=== PATIENT | male | born 1970 | race Two or more races ===

== ENCOUNTER 2016-09-26 09:43 | Inpatient (IN) | payer MEDICAID ==
[~2016-09-26] VITALS: Ht 165.1 cm; Wt 71.8 kg
[2016-09-26] VITALS (7 sets, daily range): BP systolic 104–143; BP diastolic 63–77
[~2016-09-26 09:43] MED LIST: INSUINJ37 SUBCUT; LACT10SO3 PO; NOR10T PO; [UNRECOGNIZED DRUG - CODE] PO
[2016-09-26 10:23] LABS: Basophils # (auto) 0 uL; Basophils % (auto) 0.7 % (0.0-2.0); CONDITION Y; DEFINITIVE SEE PRINTOUT; Eosinophils # (auto) 0.2 uL; Eosinophils % (auto) 2.6 % (0.0-7.0); Hematocrit 21.2 % (41.0-53.0); Hemoglobin 7.1 g/dL (13.5-17.5); Lymphocytes # (auto) 0.7 uL; Lymphocytes % (auto) 9.6 % (10.0-50.0); Mean Corpuscular Hgb Conc. 33.6 g/dL (32.0-36.0); Mean Corpuscular Volume 83.4 fL (80.0-100.0); Mean Platelet Volume 8.9 fL (7.4-10.4); Monocytes # (auto) 0.7 uL; Monocytes % (auto) 10.2 % (0.0-12.0); Neutrophils # (auto) 5.3 uL; Neutrophils % (auto) 76.9 % (37.0-80.0); Red Cell Distribution Width 21.3 % (11.6-16.0); White Blood Cell 6.9 10^3/uL (4.4-10.8)
[2016-09-26 10:24] LABS: Platelet Count (auto) 69 10^3/uL (140-450)
[2016-09-26 10:38] LABS: Albumin 1.3 g/dL (3.4-5.0); Anion Gap 6 (5-15); Aspartate Aminotransferase 22 U/L (15-37); BUN/Creatinine Ratio 6.8; Blood Urea Nitrogen 5 mg/dL (7-18); Calcium 6.6 mg/dL (8.5-10.1); Carbon Dioxide 24 mmol/L (21-32); Chloride 103 mmol/L (98-107); GFR African American 147 mL/min; GFR Non-African American 122 mL/min; Glucose 381 mg/dL (74-106); Potassium 3.4 mmol/L (3.5-5.1); Sodium 133 mmol/L (136-145)
[2016-09-26 10:42] LABS: Alkaline Phosphatase 109 U/L (45-117); Bilirubin, Total 0.7 mg/dL (0.2-1.0); Total Protein 8.5 g/dL (6.4-8.2)
[2016-09-26 10:49] LABS: Anisocytosis Slight; Platelet Estimate Decreased
[2016-09-26] MEDS ORDERED: SODIUM CHLORIDE 0.9% 1,000 ML IV ONE (14:00)
[2016-09-26] MEDS ORDERED: VANCOMYCIN 1GM/250ML D5W 250 ML IV ONE (14:15)
[2016-09-26 14:34] LABS: Urine Bilirubin Negative (Negative); Urine Blood TRACE /uL (Negative); Urine Color Yellow (Yellow); Urine Ketone Negative (Negative); Urine Nitrite Negative (Negative); Urine RBC 1 /hpf (0 - 3); Urine Squamous Epithelial Cell FEW /hpf (<5); Urine Urobilinogen Normal (Negative); Urine pH 6.5 (5.0-8.0)
[2016-09-26 14:35] LABS: Urine Glucose 4+ mg/dL (Normal)
[2016-09-26] MEDS ORDERED: POTASSIUM CHL 20 Meq TABLET PO ONE (15:30)
[2016-09-26] MEDS ORDERED: ONDANSETRON HCL 4 MG/2 ML VIAL IV PRN (15:30)
[2016-09-26] MEDS ORDERED: MORPHINE SULF INJ 2 MG/ML SYRINGE 1ML IV PRN (15:30)
[2016-09-26] MEDS ORDERED: NITROGLYCERIN 0.4 MG SL TAB SL PRN (15:30)
[2016-09-26] MEDS ORDERED: VANCOMYCIN PER PHARMACY 0 MG IV SCH (15:30)
[2016-09-26] MEDS ORDERED: HYDROcodone-ACET 5/325MG TAB PO PRN (15:30)
[2016-09-26] MEDS ORDERED: DEXTROSE (50%) 50ML SYRG IV PRN (15:30)
[2016-09-26] MEDS ORDERED: PANTOPRAZOLE 40 MG TAB PO ONE (15:45)
[2016-09-26 15:46] LABS: Albumin 1.4 g/dL (3.4-5.0); Bilirubin, Total 0.8 mg/dL (0.2-1.0); Total Protein 8.9 g/dL (6.4-8.2)
[2016-09-26 15:51] LABS: Bilirubin, Direct 0.4 mg/dL (0-0.2)
[2016-09-26] MEDS: MORPHINE SULF INJ 2 MG/ML SYRINGE 1ML IV PRN ×2 (16:10→20:45)
[2016-09-26] MEDS: PIPERACILLIN-TAZOB 3.375GM 100 ML IV SCH (17:33)
[2016-09-26] MEDS: ACCU-CHEK COMFORT CURVE STRIP VI SCH (17:33)
[2016-09-26] MEDS: InsuLIN REG 1unit/0.01ml Soln (100units/ml) SC SCH ×2 (18:00→18:06)
[2016-09-26] MEDS: METHADONE HCL 10 MG TAB PO SCH (21:40)
[2016-09-27] MEDS: PIPERACILLIN-TAZOB 3.375GM 100 ML IV SCH ×5 (00:08→23:45)
[2016-09-27] MEDS ORDERED: VANCOMYCIN 1GM/250ML D5W 250 ML IV SCH (02:00)
[2016-09-27 05:00] VITALS: BP 109/66
[2016-09-27] MEDS: ACCU-CHEK COMFORT CURVE STRIP VI SCH ×6 (05:35→23:46)
[2016-09-27] MEDS: METHADONE HCL 10 MG TAB PO SCH ×3 (05:38→22:02)
[2016-09-27] MEDS: MORPHINE SULF INJ 2 MG/ML SYRINGE 1ML IV PRN ×2 (05:43→11:37)
[2016-09-27] MEDS: InsuLIN REG 1unit/0.01ml Soln (100units/ml) SC SCH ×4 (05:50→18:26)
[2016-09-27 07:11] LABS: Partial Thromboplastin Time 29.8 sec (22.64-33.71)
[2016-09-27 07:18] LABS: Basophils # (auto) 0 uL; Basophils % (auto) 0.1 % (0.0-2.0); CONDITION Y; DEFINITIVE SEE PRINTOUT; Eosinophils # (auto) 0.1 uL; Eosinophils % (auto) 2.7 % (0.0-7.0); Hematocrit 23.9 % (41.0-53.0); Hemoglobin 7.9 g/dL (13.5-17.5); Lymphocytes # (auto) 0.7 uL; Lymphocytes % (auto) 12.8 % (10.0-50.0); Mean Corpuscular Hemoglobin 27.5 pg (28.0-32.0); Mean Corpuscular Hgb Conc. 32.9 g/dL (32.0-36.0); Mean Corpuscular Volume 83.7 fL (80.0-100.0); Mean Platelet Volume 9.3 fL (7.4-10.4); Monocytes # (auto) 0.8 uL; Neutrophils # (auto) 3.7 uL; Neutrophils % (auto) 69.4 % (37.0-80.0); Platelet Count (auto) 82 10^3/uL (140-450); Red Cell Distribution Width 21.1 % (11.6-16.0); White Blood Cell 5.3 10^3/uL (4.4-10.8)
[2016-09-27 07:28] LABS: Albumin 1.3 g/dL (3.4-5.0); BUN/Creatinine Ratio 9.7; Bilirubin, Total 1.2 mg/dL (0.2-1.0); Calcium 6.9 mg/dL (8.5-10.1); Potassium 3.5 mmol/L (3.5-5.1)
[2016-09-27 07:33] LABS: INR 1.37 (0.9-1.15)
[2016-09-27 08:28] VITALS: BP 96/47
[2016-09-27] MEDS: PANTOPRAZOLE 40 MG TAB PO SCH (11:32)
[2016-09-27 12:16] VITALS: BP 103/61
[2016-09-27 16:19] VITALS: BP 100/55
[2016-09-27] MEDS: VANCOMYCIN 1GM/250ML D5W 250 ML IV SCH (16:22)
[2016-09-27] MEDS: HYDROmorphone HCL 2 MG/ML VL IV PRN ×2 (16:26→23:45)
[2016-09-27] MEDS ORDERED: InsuLIN REG 1unit/0.01ml Soln (100units/ml) SC SCH (18:00)
[2016-09-27] MEDS ORDERED: DEXTROSE (50%) 50ML SYRG IV PRN (18:15)
[2016-09-28] MEDS: InsuLIN REG 1unit/0.01ml Soln (100units/ml) SC SCH ×5 (00:07→23:59)
[2016-09-28] MEDS: VANCOMYCIN 1GM/250ML D5W 250 ML IV SCH ×3 (03:32→20:01)
[2016-09-28] MEDS: METHADONE HCL 10 MG TAB PO SCH ×2 (05:55→11:01)
[2016-09-28] MEDS: PIPERACILLIN-TAZOB 3.375GM 100 ML IV SCH ×4 (05:55→23:53)
[2016-09-28] MEDS: ACCU-CHEK COMFORT CURVE STRIP VI SCH ×4 (05:55→23:53)
[2016-09-28] MEDS: HYDROmorphone HCL 2 MG/ML VL IV PRN (07:40)
[2016-09-28 08:00] VITALS: BP 104/56
[2016-09-28 08:40] LABS: Basophils # (auto) 0 uL; Basophils % (auto) 0.2 % (0.0-2.0); CONDITION Y; DEFINITIVE SEE PRINTOUT; Eosinophils # (auto) 0.1 uL; Eosinophils % (auto) 2.7 % (0.0-7.0); Hematocrit 22.8 % (41.0-53.0); Hemoglobin 7.5 g/dL (13.5-17.5); Lymphocytes # (auto) 0.5 uL; Lymphocytes % (auto) 10.7 % (10.0-50.0); Mean Corpuscular Hemoglobin 27.8 pg (28.0-32.0); Mean Corpuscular Hgb Conc. 33.1 g/dL (32.0-36.0); Mean Corpuscular Volume 84.1 fL (80.0-100.0); Mean Platelet Volume 9.2 fL (7.4-10.4); Monocytes # (auto) 0.5 uL; Monocytes % (auto) 12.2 % (0.0-12.0); Neutrophils # (auto) 3.2 uL; Neutrophils % (auto) 74.2 % (37.0-80.0); White Blood Cell 4.3 10^3/uL (4.4-10.8)
[2016-09-28 08:54] LABS: Platelet Count (auto) 76 10^3/uL (140-450); Red Cell Distribution Width 20.9 % (11.6-16.0)
[2016-09-28 09:00] VITALS: BP 104/56
[2016-09-28 09:01] LABS: Albumin 1.2 g/dL (3.4-5.0); Calcium 6.9 mg/dL (8.5-10.1); Potassium 3.8 mmol/L (3.5-5.1)
[2016-09-28 09:03] LABS: BUN/Creatinine Ratio 6.7
[2016-09-28 09:05] LABS: Bilirubin, Total 0.6 mg/dL (0.2-1.0)
[2016-09-28] MEDS ORDERED: PROMETHAZINE HCL 25 MG/ML 1ML IV PRN (09:45)
[2016-09-28 11:00] LABS: Anisocytosis Slight; Platelet Estimate Adequate
[2016-09-28] MEDS: PANTOPRAZOLE 40 MG TAB PO SCH (11:00)
[2016-09-28] MEDS ORDERED: VANCOMYCIN 1GM/250ML D5W 250 ML IV SCH (12:00)
[2016-09-28 17:28] VITALS: BP 118/74
[2016-09-28 19:00] VITALS: BP 98/59
[2016-09-28 20:00] VITALS: BP 98/59
[2016-09-28 21:30] VITALS: BP 98/59
[2016-09-29] MEDS: VANCOMYCIN 1GM/250ML D5W 250 ML IV SCH (02:32)
[2016-09-29] MEDS: ACCU-CHEK COMFORT CURVE STRIP VI SCH ×3 (05:33→17:42)
[2016-09-29] MEDS: InsuLIN REG 1unit/0.01ml Soln (100units/ml) SC SCH ×3 (05:33→17:12)
[2016-09-29] MEDS: PIPERACILLIN-TAZOB 3.375GM 100 ML IV SCH ×3 (05:47→17:42)
[2016-09-29 09:44] LABS: Basophils # (auto) 0 uL; Basophils % (auto) 0.5 % (0.0-2.0); CONDITION Y; DEFINITIVE SEE PRINTOUT; Eosinophils # (auto) 0.1 uL; Eosinophils % (auto) 2.9 % (0.0-7.0); Hematocrit 26.6 % (41.0-53.0); Hemoglobin 8.6 g/dL (13.5-17.5); Lymphocytes # (auto) 0.7 uL; Lymphocytes % (auto) 18.8 % (10.0-50.0); Mean Corpuscular Hemoglobin 27.8 pg (28.0-32.0); Mean Corpuscular Hgb Conc. 32.5 g/dL (32.0-36.0); Mean Corpuscular Volume 85.5 fL (80.0-100.0); Mean Platelet Volume 9.2 fL (7.4-10.4); Monocytes # (auto) 0.4 uL; Monocytes % (auto) 11.8 % (0.0-12.0); Neutrophils # (auto) 2.4 uL; Platelet Count (auto) 90 10^3/uL (140-450); White Blood Cell 3.7 10^3/uL (4.4-10.8)
[2016-09-29 09:54] LABS: Red Cell Distribution Width 20.6 % (11.6-16.0)
[2016-09-29 10:03] LABS: Albumin 1.3 g/dL (3.4-5.0); BUN/Creatinine Ratio 6.7; Calcium 7.1 mg/dL (8.5-10.1); Potassium 4.2 mmol/L (3.5-5.1)
[2016-09-29 10:06] LABS: Bilirubin, Total 0.7 mg/dL (0.2-1.0); Total Protein 8.9 g/dL (6.4-8.2)
[2016-09-29] MEDS: METHADONE HCL 10 MG TAB PO SCH (10:22)
[2016-09-29] MEDS: PANTOPRAZOLE 40 MG TAB PO SCH (10:22)
[2016-09-29 10:53] LABS: Anisocytosis Slight; Platelet Estimate Decreased; Polychromasia Slight
[2016-09-29] MEDS ORDERED: IOHEXOL 300 MG/ML 100ML BOTTLE IJ ONE (14:01)
[2016-09-29] MEDS: LINEZOLID 600MG TABLET PO SCH ×2 (14:12→21:37)
[2016-09-29] MEDS: PRO-STAT 64 30ML PO SCH (17:42)
[2016-09-29 17:51] VITALS: BP 104/63
[2016-09-29 20:00] VITALS: BP 121/67
[2016-09-29 21:30] VITALS: BP 121/67
[2016-09-29] MEDS: ASCORBIC ACID 500 MG TAB PO SCH (21:37)
[2016-09-30] MEDS: PIPERACILLIN-TAZOB 3.375GM 100 ML IV SCH ×4 (00:04→18:07)
[2016-09-30] MEDS: InsuLIN REG 1unit/0.01ml Soln (100units/ml) SC SCH ×4 (00:04→18:07)
[2016-09-30] MEDS: ACCU-CHEK COMFORT CURVE STRIP VI SCH ×4 (00:04→18:08)
[2016-09-30 05:00] VITALS: BP 121/74
[2016-09-30 06:23] LABS: Basophils # (auto) 0 uL; Basophils % (auto) 0.6 % (0.0-2.0); CONDITION Y; DEFINITIVE SEE PRINTOUT; Eosinophils # (auto) 0.1 uL; Eosinophils % (auto) 2.9 % (0.0-7.0); Hematocrit 28.6 % (41.0-53.0); Hemoglobin 9.3 g/dL (13.5-17.5); Lymphocytes # (auto) 0.8 uL; Lymphocytes % (auto) 19.5 % (10.0-50.0); Mean Corpuscular Hemoglobin 27.6 pg (28.0-32.0); Mean Corpuscular Hgb Conc. 32.7 g/dL (32.0-36.0); Mean Corpuscular Volume 84.5 fL (80.0-100.0); Mean Platelet Volume 9.1 fL (7.4-10.4); Monocytes # (auto) 0.5 uL; Monocytes % (auto) 11.9 % (0.0-12.0); Neutrophils # (auto) 2.8 uL; Neutrophils % (auto) 65.1 % (37.0-80.0); Platelet Count (auto) 99 10^3/uL (140-450); White Blood Cell 4.3 10^3/uL (4.4-10.8)
[2016-09-30 06:36] LABS: Albumin 1.5 g/dL (3.4-5.0); Calcium 7.4 mg/dL (8.5-10.1); Potassium 3.5 mmol/L (3.5-5.1)
[2016-09-30 06:43] LABS: BUN/Creatinine Ratio 8.3; Bilirubin, Total 0.7 mg/dL (0.2-1.0); Total Protein 9.8 g/dL (6.4-8.2)
[2016-09-30 06:46] LABS: Red Cell Distribution Width 20.6 % (11.6-16.0)
[2016-09-30 06:49] LABS: Anisocytosis Slight; Platelet Estimate Decreased; Polychromasia Slight
[2016-09-30] MEDS: PRO-STAT 64 30ML PO SCH ×2 (08:00→18:08)
[2016-09-30 09:00] VITALS: BP 112/70
[2016-09-30] MEDS: MULTIPLE VITAMIN TAB PO SCH (09:34)
[2016-09-30] MEDS: PANTOPRAZOLE 40 MG TAB PO SCH (09:35)
[2016-09-30] MEDS: METHADONE HCL 10 MG TAB PO SCH (09:35)
[2016-09-30] MEDS: ASCORBIC ACID 500 MG TAB PO SCH ×2 (09:35→22:05)
[2016-09-30] MEDS: LINEZOLID 600MG TABLET PO SCH ×2 (10:00→22:05)
[2016-09-30 13:19] VITALS: BP 108/59
[2016-09-30 17:56] VITALS: BP 115/77
[2016-09-30 21:38] VITALS: BP 99/63
[2016-10-01] MEDS: PIPERACILLIN-TAZOB 3.375GM 100 ML IV SCH ×4 (00:06→17:58)
[2016-10-01] MEDS: ACCU-CHEK COMFORT CURVE STRIP VI SCH ×4 (00:06→18:06)
[2016-10-01] MEDS: InsuLIN REG 1unit/0.01ml Soln (100units/ml) SC SCH ×4 (00:06→18:27)
[2016-10-01 04:33] VITALS: BP 123/78
[2016-10-01 07:50] VITALS: BP 98/55
[2016-10-01] MEDS: PRO-STAT 64 30ML PO SCH ×2 (08:00→18:00)
[2016-10-01 09:00] VITALS: BP 98/55
[2016-10-01] MEDS: MULTIPLE VITAMIN TAB PO SCH (10:05)
[2016-10-01] MEDS: PANTOPRAZOLE 40 MG TAB PO SCH (10:06)
[2016-10-01] MEDS: LINEZOLID 600MG TABLET PO SCH ×2 (10:06→22:00)
[2016-10-01] MEDS: METHADONE HCL 10 MG TAB PO SCH (10:06)
[2016-10-01] MEDS: ASCORBIC ACID 500 MG TAB PO SCH ×2 (10:06→22:00)
[2016-10-01] MEDS ORDERED: CEPHALEXIN 250 MG CAP PO SCH (12:00)
[2016-10-01 13:00] VITALS: BP 118/67
[2016-10-01 17:00] VITALS: BP 162/72
[2016-10-01 21:12] VITALS: BP 116/75
[2016-10-02] MEDS: ACCU-CHEK COMFORT CURVE STRIP VI SCH ×4 (00:01→18:08)
[2016-10-02] MEDS: PIPERACILLIN-TAZOB 3.375GM 100 ML IV SCH ×4 (00:01→17:33)
[2016-10-02] MEDS: InsuLIN REG 1unit/0.01ml Soln (100units/ml) SC SCH ×4 (00:01→18:15)
[2016-10-02 04:56] VITALS: BP 114/67
[2016-10-02 06:09] LABS: Basophils # (auto) 0 uL; Basophils % (auto) 0.7 % (0.0-2.0); CONDITION Y; DEFINITIVE SEE PRINTOUT; Eosinophils # (auto) 0.1 uL; Eosinophils % (auto) 2.9 % (0.0-7.0); Hematocrit 25.5 % (41.0-53.0); Hemoglobin 8.5 g/dL (13.5-17.5); Lymphocytes # (auto) 0.7 uL; Lymphocytes % (auto) 20.7 % (10.0-50.0); Mean Corpuscular Hemoglobin 28.1 pg (28.0-32.0); Mean Corpuscular Hgb Conc. 33.3 g/dL (32.0-36.0); Mean Corpuscular Volume 84.5 fL (80.0-100.0); Mean Platelet Volume 8.6 fL (7.4-10.4); Monocytes # (auto) 0.5 uL; Monocytes % (auto) 13.3 % (0.0-12.0); Neutrophils # (auto) 2.1 uL; Neutrophils % (auto) 62.4 % (37.0-80.0); Platelet Count (auto) 78 10^3/uL (140-450); White Blood Cell 3.4 10^3/uL (4.4-10.8)
[2016-10-02 06:10] LABS: Red Cell Distribution Width 20.2 % (11.6-16.0)
[2016-10-02 06:29] LABS: Albumin 1.4 g/dL (3.4-5.0); Calcium 7.3 mg/dL (8.5-10.1)
[2016-10-02 06:31] LABS: BUN/Creatinine Ratio 12.3
[2016-10-02 06:36] LABS: Bilirubin, Total 0.7 mg/dL (0.2-1.0); Total Protein 9.3 g/dL (6.4-8.2)
[2016-10-02 06:56] LABS: Anisocytosis Slight; Platelet Estimate Decreased
[2016-10-02 07:45] VITALS: BP 109/59
[2016-10-02] MEDS: PRO-STAT 64 30ML PO SCH ×2 (08:00→18:00)
[2016-10-02] MEDS: MULTIPLE VITAMIN TAB PO SCH (09:40)
[2016-10-02] MEDS: LINEZOLID 600MG TABLET PO SCH ×2 (09:40→21:46)
[2016-10-02] MEDS: PANTOPRAZOLE 40 MG TAB PO SCH (09:40)
[2016-10-02] MEDS: ASCORBIC ACID 500 MG TAB PO SCH ×2 (09:40→21:45)
[2016-10-02 09:56] VITALS: BP 109/59
[2016-10-02] MEDS: METHADONE HCL 10 MG TAB PO SCH (09:56)
[2016-10-02 12:21] VITALS: BP 109/64
[2016-10-02 21:41] VITALS: BP 102/59
[2016-10-03] MEDS: ACCU-CHEK COMFORT CURVE STRIP VI SCH ×3 (00:01→12:00)
[2016-10-03] MEDS: PIPERACILLIN-TAZOB 3.375GM 100 ML IV SCH ×3 (00:02→12:00)
[2016-10-03 05:00] VITALS: BP 105/60
[2016-10-03] MEDS: InsuLIN REG 1unit/0.01ml Soln (100units/ml) SC SCH ×3 (06:24→12:00)
[2016-10-03] MEDS: PRO-STAT 64 30ML PO SCH (08:00)
[2016-10-03 09:00] VITALS: BP 101/47
[2016-10-03] MEDS: MULTIPLE VITAMIN TAB PO SCH (09:47)
[2016-10-03] MEDS: ASCORBIC ACID 500 MG TAB PO SCH (09:47)
[2016-10-03] MEDS: LINEZOLID 600MG TABLET PO SCH (09:47)
[2016-10-03] MEDS: PANTOPRAZOLE 40 MG TAB PO SCH (09:48)
[2016-10-03] MEDS: METHADONE HCL 10 MG TAB PO SCH (09:48)
== END 2016-10-03 15:00 | disposition home or self-care (01) | DRG 383 ==
LOC: EDBD 09:43 → ER 09:56 → TELE 09:57 → TELE-EAST 17:01
PROVIDERS: ADMIT Internal Medicine; ATTEND Internal Medicine
PROC: 30233N1 Transfusion of Nonautologous Red Blood Cells into Peripheral Vein, Percutaneous Approach (ICD-10-PCS; principal; 2016-09-26)
DX: L03.116 Cellulitis of left lower limb (principal); E43 Unspecified severe protein-calorie malnutrition; K74.60 Unspecified cirrhosis of liver; L02.413 Cutaneous abscess of right upper limb; E11.9 Type 2 diabetes mellitus without complications; F11.10 Opioid abuse, uncomplicated; L02.414 Cutaneous abscess of left upper limb; B95.62 Methicillin resistant Staphylococcus aureus infection as the cause of diseases classified elsewhere; B96.89 Other specified bacterial agents as the cause of diseases classified elsewhere; L03.113 Cellulitis of right upper limb; D63.8 Anemia in other chronic diseases classified elsewhere; L02.416 Cutaneous abscess of left lower limb; B19.20 Unspecified viral hepatitis C without hepatic coma; D64.9 Anemia, unspecified; F19.10 Other psychoactive substance abuse, uncomplicated; Z88.6 Allergy status to analgesic agent; Z91.013 Allergy to seafood; Z59.0 Homelessness; Z90.49 Acquired absence of other specified parts of digestive tract; Z91.19 Patient's noncompliance with other medical treatment and regimen; Z68.26 Body mass index [BMI] 26.0-26.9, adult
CPT/HCPCS: 36415; 71010; 73201; 73590; 74176; 76881; 80053; 80074; 80076; 80202; 80307; 81001; 82140; 82962; 83036; 83605; 84484; 85025; 85610; 85730; 86850; 86900; 86901; 86922; 87040; 87077; 87081; 87086; 87186; 87205; 93005; 96361; 96365; J1815; J2543